=== PATIENT | male | born 1980 | race Caucasian/White ===

== ENCOUNTER 2021-05-30 20:19 | Emergency (ER) | payer MEDICAID ==
[~2021-05-30] VITALS: Ht 167.6 cm; Wt 113.4 kg
--- NOTE | 2021-05-30 20:35 | NUR ---
PT AMBULATED TO ER WITH C/O LACERATION ON MIDDLE FOREHEAD. PT STATES HE FELL WHILE CLIMBING A LADDER. A/O X3, NO SOB OR LABORED BREATHING, AFEBRILE. CLEAR SPEECH, COMPLETE SENTENCES.
--- NOTE | 2021-05-30 21:10 | NUR ---
DR. ALATORRE AT BEDSIDE, MSE IN PROGRESS.
--- NOTE | 2021-05-30 21:52 | NUR ---
PT TAKEN DOWN FOR CT.
--- NOTE | 2021-05-30 22:06 | NUR ---
PT RETURNED FROM CT.
[2021-05-30] MEDS ORDERED: OXYC-128 PO (22:57)
[2021-05-30] MEDS ORDERED: PROC10TA29 PO (22:57)
--- NOTE | 2021-05-30 23:10 | NUR ---
Patient discharged to home in stable condition. No changes in LOC. Denies any pain/discomfort upon discharge. Written and verbal after care instructions given. Patient verbalizes understanding of instructions. Stressed follow up or return to ER for worsening s/s. Steady gait. Picked up by .
[2021-05-30 23:11] VITALS: BP 150/88
== END 2021-05-30 23:10 | disposition home or self-care (01) ==
LOC: ER 20:21
DX: S06.9X9A Unspecified intracranial injury with loss of consciousness of unspecified duration, initial encounter (principal); R40.2362 Coma scale, best motor response, obeys commands, at arrival to emergency department; R40.2142 Coma scale, eyes open, spontaneous, at arrival to emergency department; R40.2252 Coma scale, best verbal response, oriented, at arrival to emergency department; S01.81XA Laceration without foreign body of other part of head, initial encounter; W11.XXXA Fall on and from ladder, initial encounter; Y92.89 Other specified places as the place of occurrence of the external cause; Y99.8 Other external cause status
CPT/HCPCS: 70450; A4663